=== PATIENT | female | born 1935 | race African-American/Black ===

== ENCOUNTER 2018-04-02 12:04 | Emergency (ER) | payer MEDICARE ==
[2018-04-02 12:22] VITALS: BP 164/66
--- NOTE | 2018-04-02 12:30 | ER Document Report ---
ED Medical Screen (RME) - General Chief Complaint: Chest Pain Stated Complaint: CONFUSION/HEADACHE Time Seen by Provider: 04/02/18 12:27 Notes: 10 years old nidia female was brought in by her niece because of confusion combative this morning. The history of frequency of urination. Been coughing on and off largely dry cough. Had some runny nose. No fever chills or other constitutional symptoms. No difficulty in breathing. No nausea vomiting diarrhea. Otherwise active as normal. Ambulatory. Has advanced dementia I have greeted and performed a rapid initial assessment of this patient. A comprehensive ED assessment and evaluation of the patient, analysis of test results and completion of the medical decision making process will be conducted by additional ED providers. PHYSICAL EXAMINATION: GENERAL: Well-appearing, well-nourished and in no acute distress. Nidia female HEAD: Atraumatic, normocephalic. EYES: Pupils equal round extraocular movements intact, conjunctiva are normal. ENT: Nares patent NECK: Normal range of motion LUNGS: No respiratory distress Musculoskeletal: Normal range of motion NEUROLOGICAL: Normal speech, normal gait. PSYCH: Normal mood, normal affect. SKIN: Warm, Dry, normal turgor, no rashes or lesions noted. TRAVEL OUTSIDE OF THE [place] IN LAST 30 DAYS: No - Related Data Allergies/Adverse Reactions: No Known Allergies Allergy (Verified 04/02/18 12:23) Physical Exam - Vital signs Vitals: Temp Pulse Resp BP Pulse Ox 98.0 F 64 18 164/66 H 96 04/02/18 12:20 04/02/18 12:20 04/02/18 12:20 04/02/18 12:20 04/02/18 12:20 Course - Vital Signs Vital signs: Temp Pulse Resp BP Pulse Ox 98.0 F 64 18 164/66 H 96 04/02/18 12:20 04/02/18 12:20 04/02/18 12:20 04/02/18 12:20 04/02/18 12:20
[2018-04-02 13:33] LABS: ABSOLUTE BASOPHILS # (AUTO) 0.1 10^3/uL (0.0-0.2); ABSOLUTE EOSINOPHILS # (AUTO) 0.1 10^3/uL (0.0-0.6); ABSOLUTE LYMPHOCYTES (AUTO) 1.1 10^3/uL (0.5-4.7); ABSOLUTE MONOCYTES (AUTO) 0.4 10^3/uL (0.1-1.4); ABSOLUTE NEUT (AUTO) 2.1 10^3/uL (1.7-8.2); BASOPHILS % (AUTO) 1.4 % (0-2); EOSINOPHILS % (AUTO) 1.9 % (0-6); HEMATOCRIT 37.3 % (36.0-47.0); HEMOGLOBIN 12.7 g/dL (12.0-15.5); LYMPHOCYTES % (AUTO) 30.2 % (13-45); MEAN CORPUSCULAR HEMOGLOBIN 30.3 pg (27.0-33.4); MEAN CORPUSCULAR VOLUME 89 fl (80-97); MONOCYTES % (AUTO) 10.9 % (3-13); PLATELET COUNT 200 10^3/uL (150-450); RED BLOOD COUNT 4.19 10^6/uL (3.72-5.28); RED CELL DISTRIBUTION WIDTH 14.4 % (11.5-14.0); SEGMENTED NEUTROPHILS % (AUTO) 55.6 % (42-78); TOTAL CELLS COUNTED % (AUTO) 100 %; WHITE BLOOD COUNT 3.7 10^3/uL (4.0-10.5)
[2018-04-02 13:55] LABS: ALANINE AMINOTRANSFERASE 26 U/L (9-52); ALBUMIN 4.1 g/dL (3.5-5.0); ALKALINE PHOSPHATASE 88 U/L (38-126); ANION GAP 14 (5-19); ASPARTATE AMINO TRANSFERASE 22 U/L (14-36); BILIRUBIN,DIRECT 0.3 mg/dL (0.0-0.4); BILIRUBIN,TOTAL 0.4 mg/dL (0.2-1.3); BLOOD UREA NITROGEN 17 mg/dL (7-20); CALCIUM 9.1 mg/dL (8.4-10.2); CARBON DIOXIDE 30 mmol/L (22-30); CHLORIDE 104 mmol/L (98-107); GLUCOSE 91 mg/dL (75-110); POTASSIUM 3.9 mmol/L (3.6-5.0); TOTAL PROTEIN 7.5 g/dL (6.3-8.2)
[2018-04-02 14:24] LABS: APPEARANCE,URINE CLEAR; BILIRUBIN,URINE NEGATIVE (NEGATIVE); COLOR,URINE YELLOW; GLUCOSE, URINE NEGATIVE (NEGATIVE); KETONES,URINE NEGATIVE (NEGATIVE); LEUKOCYTE ESTERASE,URINE NEGATIVE (NEGATIVE); NITRITE,URINE NEGATIVE (NEGATIVE); PROTEIN,URINE NEGATIVE (NEGATIVE); URINE SPECIFIC GRAVITY 1.018; UROBILINOGEN,URINE NEGATIVE mg/dL (<2.0)
--- NOTE | 2018-04-02 14:29 | ER Document Report ---
ED Cardiac - General Mode of Arrival: Ambulatory Information source: Patient TRAVEL OUTSIDE OF THE [place] IN LAST 30 DAYS: No <PAL IZQUIERDO - Last Filed: 04/02/18 18:46> <JERRELL GOMEZ - Last Filed: 04/02/18 18:47> - General Chief Complaint: Chest Pain Stated Complaint: CONFUSION/HEADACHE Time Seen by Provider: 04/02/18 12:27 Notes: 82 y.o female presents to the ED with TINSLEY, confusion, mid back pain and CP. Pt reports that her TINSLEY started . She denies any hit to her head recently. Pt states that she has had pain in her chest in the past and reports that her pain currently is similar to past pain. Pt denies any dysuria, diarrhea or vomiting. Niece, who is primary caregiver, at bedside states that the patient woke up this morning complaining of a headache and chest pain. She reports that she has a hx of dementia but has been more confused today and combative. Niece also reports patient to have some urinary frequency. (PAL IZQUIERDO) - Related Data Allergies/Adverse Reactions: No Known Allergies Allergy (Verified 04/02/18 12:23) Past Medical History - General Information source: Patient - Social History Smoking Status: Former Smoker Chew tobacco use (# tins/day): No Frequency of alcohol use: None Drug Abuse: None Patient has suicidal ideation: No Patient has homicidal ideation: No - Past Medical History Cardiac Medical History: Reports: Hx Hypertension Endocrine Medical History: Reports: Hx Diabetes Mellitus Type 2 Renal/ Medical History: Denies: Hx Peritoneal Dialysis <PAL IZQUIERDO - Last Filed: 04/02/18 18:46> - Social History Family History: Reviewed & Not Pertinent <JERRELL GOMEZ - Last Filed: 04/02/18 18:47> Review of Systems - Review of Systems Constitutional: No symptoms reported EENT: No symptoms reported Cardiovascular: Chest pain Respiratory: No symptoms reported Gastrointestinal: See HPI. denies: Diarrhea, Nausea, Vomiting Genitourinary: See HPI, Frequency. denies: Dysuria Female Genitourinary: No symptoms reported Musculoskeletal: Back pain Skin: No symptoms reported Hematologic/Lymphatic: No symptoms reported Neurological/Psychological: See HPI, Confusion, Headaches -: Yes All other systems reviewed and negative <PAL IZQUIERDO - Last Filed: 04/02/18 18:46> Physical Exam <PAL IZQUIERDO - Last Filed: 04/02/18 18:46> <JERRELL GOMEZ - Last Filed: 04/02/18 18:47> - Vital signs Vitals: Temp Pulse Resp BP Pulse Ox 98.0 F 64 18 164/66 H 96 04/02/18 12:20 04/02/18 12:20 04/02/18 12:20 04/02/18 12:20 04/02/18 12:20 - Notes Notes: PHYSICAL EXAM GENERAL: Alert, interacts well. No acute distress. HEAD: Normocephalic, atraumatic. EYES: Pupils equal, round, and reactive to light. Extraocular movements intact. ENT: Oral mucosa moist, tongue midline. NECK: Full range of motion. Supple. Trachea midline. LUNGS: Clear to auscultation bilaterally, no wheezes, rales, or rhonchi. No respiratory distress. HEART: Regular rate and rhythm. No murmurs, gallops, or rubs. ABDOMEN: Soft, non-tender. Non-distended. Bowel sounds present in all 4 quadrants. No guarding, rebound, or rigidity. EXTREMITIES: Moves all 4 extremities spontaneously. Radial and dorsalis pedis pulses 2/4 bilaterally. No cyanosis. Trace pitting edema to bilateral lower extremities. NEUROLOGICAL: Alert, confused. Oriented to person; Pt knows that she is at the hospital but does not now which city, believes [facility] is the current president. Normal speech. PSYCH: Normal affect, normal mood. (PAL IZQUIERDO) Course - Laboratory Result Diagrams: 04/02/18 13:04 04/02/18 13:04 <PAL IZQUIERDO - Last Filed: 04/02/18 18:46> - Laboratory Result Diagrams: 04/02/18 13:04 04/02/18 13:04 <JERRELL GOMEZ - Last Filed: 04/02/18 18:47> - Re-evaluation Re-evalutation: 04/02/18 15:52 CBC shows slight leukopenia at 3.7 otherwise unremarkable, urinalysis shows slightly elevated sodium at 148 otherwise unremarkable, cardiac enzymes negative , urinalysis shows blood but only 8 RBCs, no signs of infection. Family and patient refused CAT scan of the head. Increased confusion does not have a specific explanation however it is likely related to her dementia. Patient will follow up with Dr. Candelaria as an outpatient for further workup of the microscopic hematuria. (JERRELL GOMEZ) - Vital Signs Vital signs: Temp Pulse Resp BP Pulse Ox 98.0 F 64 18 164/66 H 96 04/02/18 12:20 04/02/18 12:20 04/02/18 12:20 04/02/18 12:20 04/02/18 12:20 - Laboratory Laboratory results interpreted by me: 04/02/18 04/02/18 04/02/18 13:04 13:04 13:04 WBC 3.7 L RDW 14.4 H Sodium 148.0 H Urine Blood MODERATE H - EKG Interpretation by Me Additional EKG results interpreted by me: 04/02/18 15:55 EKG shows sinus rhythm at a rate of 64 with PACs, left anterior hemiblock, normal R-wave progression, no ST segment elevations or depressions, there is T- wave flattening in aVF and T-wave inversions in lead III per my interpretation. (JERRELL GOMEZ) Discharge <PAL IZQUIERDO - Last Filed: 04/02/18 18:46> <JERRELL GOMEZ - Last Filed: 04/02/18 18:47> - Discharge Clinical Impression: Confusion, Microscopic hematuria Dementia Qualifiers: Dementia type: Alzheimer's disease Alzheimer's disease onset: late-onset Dementia behavioral disturbance: with behavioral disturbance Qualified Code(s): G30.1 - Alzheimer's disease with late onset Condition: Stable Disposition: HOME, SELF-CARE Additional Instructions: Today your urinalysis showed a small amount of blood. You need to follow-up with Dr. Candelaria to make sure this either resolves or that he checks your kidneys to find an explanation for this. We did not find a urinary tract infection, any problems with your electrolytes or any other signs of infection. If her confusion continues to get worse or her aggression continues to get worse she may consider asking for referral to the psychiatrist at [facility] who specializes in both neurology and psychiatry particularly geriatric psychiatry. Referrals: MYRNA CANDELARIA MD [Primary Care Provider] - Follow up in 3-5 days Scribe Attestation: 04/02/18 18:47 I personally performed the services described in the documentation, reviewed and edited the documentation which was dictated to the scribe in my presence, and it accurately records my words and actions. (JERRELL GOMEZ) Scribe Documentation - Scribe Written by Lindsay:: Lindsay Louis [id number] 04/02/18 acting as scribe for :: Mis <PAL IZQUIERDO - Last Filed: 04/02/18 18:46>
--- NOTE | 2018-04-02 18:04 | EKG REPORT ---
SEVERITY:- ABNORMAL ECG - SINUS RHYTHM ATRIAL PREMATURE COMPLEX PROBABLE INFERIOR INFARCT, AGE INDETERMINATE : Confirmed by: Ryan Butt 02-Apr-2018 18:04:16
== END 2018-04-02 16:09 | disposition home or self-care (01) ==
LOC: ER 12:04
DX: G30.1 Alzheimer's disease with late onset (principal); F02.80 Dementia in other diseases classified elsewhere, unspecified severity, without behavioral disturbance, psychotic disturbance, mood disturbance, and anxiety; R51 Headache; M54.9 Dorsalgia, unspecified; R07.9 Chest pain, unspecified; R31.29 Other microscopic hematuria; R35.0 Frequency of micturition; R60.0 Localized edema; D72.819 Decreased white blood cell count, unspecified; I49.1 Atrial premature depolarization; I10 Essential (primary) hypertension; E11.9 Type 2 diabetes mellitus without complications; Z87.891 Personal history of nicotine dependence
CPT/HCPCS: 36415; 80053; 81001; 84484; 85025; 93005; 93010; 99285

== ENCOUNTER → 2018-04-06 | Outpatient (CLI) | payer MEDICARE ==
--- NOTE | 2018-04-06 14:47 | RADIOLOGY REPORT (SQ) ---
EXAM DESCRIPTION: CHEST PA/LATERAL COMPLETED DATE/TIME: 04/06/2018 2:38 pm REASON FOR STUDY: R05, COUGH COMPARISON: None. EXAM PARAMETERS: NUMBER OF VIEWS: two views TECHNIQUE: Digital Frontal and Lateral radiographic views of the chest acquired. RADIATION DOSE: NA LIMITATIONS: none FINDINGS: LUNGS AND PLEURA: No opacities, masses or pneumothorax. No pleural effusion. MEDIASTINUM AND HILAR STRUCTURES: No masses or contour abnormalities. HEART AND VASCULAR STRUCTURES: Heart normal size. No evidence for failure. BONES: No acute findings. Degenerative changes in the spine. HARDWARE: Clips in the upper abdomen. OTHER: No other significant finding. IMPRESSION: NO SIGNIFICANT RADIOGRAPHIC FINDING IN THE CHEST. TECHNICAL DOCUMENTATION: JOB ID: [id number] [employer]- All Rights Reserved Reading location - IP/workstation name: [email or web address]
== END ==
LOC: OD 14:22
PROVIDERS: ATTEND Internal Medicine
DX: R05 Cough (principal)
CPT/HCPCS: 71046